=== PATIENT | male | born 1930 | race Caucasian/White ===

== ENCOUNTER 2016-12-03 13:50 | Outpatient (CLI) | payer MEDICARE, OTHER | END 2016-12-03 13:51 | disposition short-term general hospital (02) | DX: R55 Syncope and collapse (principal) | CPT/HCPCS: A0425; A0427 ==

== ENCOUNTER 2017-02-09 23:11 | Outpatient (CLI) | payer MEDICARE, OTHER | END 2017-02-09 23:12 | disposition EMS.NT | LOC: EMS 23:11 | PROVIDERS: ATTEND Surgery ==